=== PATIENT | female | born 1940 | race Caucasian/White ===

== ENCOUNTER 2017-03-24 15:52 | Emergency (ER) | payer MEDICARE ==
--- NOTE | 2017-03-24 16:38 | ER Document Report ---
ED Medical Screen (RME) - General Chief Complaint: Psych Problem Stated Complaint: PSYCH EVALUATION Time Seen by Provider: 03/24/17 16:33 Mode of Arrival: Ambulatory Information source: Patient TRAVEL OUTSIDE OF THE [place] IN LAST 30 DAYS: No - HPI Patient complains to provider of: psych evaluation Onset: Other - Pt's son has dropped her off in the ER -- I did not get to speak with him but evidently he wants her evaluated for Alzheimer's dz. Told personal insurance advisor that she waws becoming increasingly forgetful. Pt. denies SI/HI Past Medical History Renal/ Medical History: Denies: Hx Peritoneal Dialysis Physical Exam - Vital signs Vitals: Temp Pulse Resp BP Pulse Ox 98.7 F 71 20 158/87 H 96 03/24/17 15:56 03/24/17 15:56 03/24/17 15:56 03/24/17 15:56 03/24/17 15:56 Course - Vital Signs Vital signs: Temp Pulse Resp BP Pulse Ox 98.7 F 67 20 158/87 H 100 03/24/17 15:59 03/24/17 15:59 03/24/17 15:59 03/24/17 15:59 03/24/17 15:59
[2017-03-24 17:26] LABS: APPEARANCE,URINE SLIGHTLY-CLOUDY; BILIRUBIN,URINE NEGATIVE (NEGATIVE); GLUCOSE, URINE NEGATIVE (NEGATIVE); KETONES,URINE NEGATIVE (NEGATIVE); LEUKOCYTE ESTERASE,URINE SMALL (NEGATIVE); NITRITE,URINE POSITIVE (NEGATIVE); PROTEIN,URINE NEGATIVE (NEGATIVE); URINE SPECIFIC GRAVITY 1.024; UROBILINOGEN,URINE NEGATIVE mg/dL (<2.0)
--- NOTE | 2017-03-24 17:26 | ER Document Report ---
ED General - General Mode of Arrival: Ambulatory TRAVEL OUTSIDE OF THE [place] IN LAST 30 DAYS: No - HPI Associated symptoms: Other - see above <JANESSA NIETO - Last Filed: 03/24/17 22:42> <SONIA DE ANDA - Last Filed: 03/24/17 22:46> - General Chief Complaint: Psych Problem Stated Complaint: PSYCH EVALUATION Time Seen by Provider: 03/24/17 16:33 Notes: Patient is a 76 year old female who presents to the ED after being dropped off my her son and daughter in law with the help of JONATHAN. Patients son let a list of reasons why he would like his mother evaluated for psychiatric problems. Son is not present in the ED. He states the patient has been asking for family members who are , forgetting where the restroom is at in the house, locking doors in the home when asked not to, forgetting that son was , being scared to sleep in her bedroom, moving objects around the house without remembering doing so, opening doors with not remembering opening it, thinking she is to her son and thinking her son(who she thinks is ) is having an affair on her with sons . Patient is very confused as to why she is here when asked. She continues to refer to son has her and talks about him having an affair with another women (sons ). She denies any chest pain, SOB, nausea, vomiting, diarrhea, or abdominal pain. (JANESSA NIETO) - Related Data Allergies/Adverse Reactions: ibuprofen Allergy (Verified 03/24/17 17:04) naproxen Allergy (Verified 03/24/17 17:04) Home Medications: Current Home Medications Allopurinol [Zyloprim 100 mg Tablet] 100 mg PO DAILY 03/24/17 [History] Aspirin 81 mg PO DAILY 03/24/17 [History] Atorvastatin Calcium [Lipitor 80 mg Tablet] 80 mg PO DAILY 03/24/17 [History] Duloxetine HCl [Cymbalta] 60 mg PO DAILY 03/24/17 [History] Levothyroxine Sodium [Synthroid 0.112 mg Tablet] 0.137 mg PO DAILY 03/24/17 [ History] Lorazepam 1 mg PO BID 03/24/17 [History] Losartan Potassium 25 mg PO DAILY 03/24/17 [History] Zolpidem Tartrate 10 mg PO DAILY 03/24/17 [History] Past Medical History - General Information source: Patient - Social History Smoking Status: Former Smoker Chew tobacco use (# tins/day): No Frequency of alcohol use: None Patient has suicidal ideation: No Patient has homicidal ideation: No - Past Medical History Cardiac Medical History: Reports: Hx Hypercholesterolemia Renal/ Medical History: Denies: Hx Peritoneal Dialysis Psychiatric Medical History: Reports: Hx Depression <EMILIAJANESSA - Last Filed: 03/24/17 22:42> - Social History Family History: Other - alzheimers <SONIA DE ANDA - Last Filed: 03/24/17 22:46> Review of Systems - Review of Systems Constitutional: No symptoms reported EENT: No symptoms reported Cardiovascular: See HPI. denies: Chest pain Respiratory: See HPI. denies: Short of breath Gastrointestinal: No symptoms reported. denies: Abdominal pain, Diarrhea, Nausea, Vomiting Genitourinary: No symptoms reported Female Genitourinary: No symptoms reported Musculoskeletal: No symptoms reported Skin: No symptoms reported Hematologic/Lymphatic: No symptoms reported Neurological/Psychological: See HPI, Confusion <EMILIAJANESSA - Last Filed: 03/24/17 22:42> Physical Exam <EMILIAJANESSA - Last Filed: 03/24/17 22:42> <SONIA DE ANDA - Last Filed: 03/24/17 22:46> - Vital signs Vitals: Temp Pulse Resp BP Pulse Ox 98.7 F 71 20 158/87 H 96 03/24/17 15:56 03/24/17 15:56 03/24/17 15:56 03/24/17 15:56 03/24/17 15:56 - Notes Notes: GENERAL: Alert, interacts well. No acute distress. HEAD: Normocephalic, atraumatic. EYES: Pupils equal, round, and reactive to light. Extraocular movements intact. ENT: Oral mucosa moist, tongue midline. NECK: Full range of motion. Supple. Trachea midline. LUNGS: Clear to auscultation bilaterally, no wheezes, rales, or rhonchi. No respiratory distress. HEART: Regular rate and rhythm. No murmurs, gallops, or rubs. ABDOMEN: Soft, non-tender. Non-distended. Bowel sounds present in all 4 quadrants. EXTREMITIES: Moves all 4 extremities spontaneously. No edema, radial and dorsalis pedis pulses 2/4 bilaterally. No cyanosis. NEUROLOGICAL: Alert. Oriented to person, knows she is in the hospital in [place] but cannot name which hospital or what town she is in. Disoriented to time. Confused about the situation. Patient thinks son is her and sons is her husbands mistress. Normal speech. Biceps and patellar DTRs 2+ bilaterally. PSYCH: Pleasant. Confused. SKIN: Warm, dry, normal turgor. No rashes or lesions noted. (JANESSA NIETO) Course - Laboratory Result Diagrams: 03/24/17 18:30 03/24/17 18:30 <JANESSA NIETO - Last Filed: 03/24/17 22:42> - Laboratory Result Diagrams: 03/24/17 18:30 03/24/17 18:30 <SONIA DE ANDA - Last Filed: 03/24/17 22:46> - Re-evaluation Re-evalutation: 03/24/17 19:42 Contacted patients family over the phone. They are going to come picker tender helper the patient. (JANESSA NIETO) 03/24/17 20:05 CBC unremarkable, CMP shows slight hyper hypokalemia with potassium 3.5, repleted here, otherwise unremarkable, urinalysis is positive for nitrites and small leukocyte esterase, sent for culture, urine drug screen and alcohol negative. Called and discussed with son and [id number] that the patient does not appear to have any acute psychiatric issues at this time she appears to have undiagnosed dementia. She also has a urinary tract infection which could be worsening some of her symptoms at this time. Family is rather overwhelmed by the diagnosis of dementia, repeatedly asks if I am certain that she does not have any new mental health issues that would have appeared in the past year. We did discuss that schizophrenia and other such diagnoses do not think we have here at 72 years old. They are aware that the patient does have a history of anxiety and depression and is currently receiving appropriate medications to treat this and that these are frequent comorbidities with dementia. I do not feel the patient needs IVC criteria, she is not an immediate danger to herself or other people. Patient will be discharged to home with Keflex for her UTI. Family will come and get her. Information has been given to Devin Butler Hal and for helping the family navigate the process of getting her into an outpatient memory care facility. Patient does not meet admission criteria. ( SONIA DE ANDA) - Vital Signs Vital signs: Temp Pulse Resp BP Pulse Ox 98.0 F 66 20 167/54 H 95 03/24/17 21:25 03/24/17 21:25 03/24/17 21:25 03/24/17 21:25 03/24/17 21:25 - Laboratory Laboratory results interpreted by me: 03/24/17 03/24/17 03/24/17 16:40 18:30 18:30 RDW 14.5 H Potassium 3.5 L Est GFR (Non-Af Amer) 58 L Urine Nitrite POSITIVE H Ur Leukocyte Esterase SMALL H Discharge <JANESSA NIETO - Last Filed: 03/24/17 22:42> <SONIA DE ANDA - Last Filed: 03/24/17 22:46> - Discharge Clinical Impression: Dementia Qualifiers: Dementia type: unspecified type Dementia behavioral disturbance: without behavioral disturbance Qualified Code(s): F03.90 - Unspecified dementia without behavioral disturbance Urinary tract infection Qualifiers: Urinary tract infection type: acute cystitis Hematuria presence: without hematuria Qualified Code(s): N30.00 - Acute cystitis without hematuria Hypertension Qualifiers: Hypertension type: essential hypertension Qualified Code(s): I10 - Essential ( primary) hypertension Condition: Good Disposition: HOME, SELF-CARE Additional Instructions: Dementia The exam shows a decrease in mental ability called dementia. Signs of dementia include a gradual loss of memory and a decreased ability to reason and solve problems. Personality changes, hostility, lack of self-care, and loss of bladder or bowel control are later signs of dementia. In these later stages, patients may become confused, lost, fearful, or agitated, even in familiar places. Alzheimer's disease is the most common type of dementia. It has no known cause or specific treatment. Other causes include alcohol and drug abuse, medication effects (especially tranquilizers and sleeping pills), strokes, head injuries, and brain tumors. Sometimes severe depression in an elderly person is mistaken for dementia, and this can be treated if recognized. A complete medical evaluation and ongoing care with a doctor is important. Most people with dementia need help or supervision with daily living. Some may be able to live independently with occasional help; others require foster care or even chcf placement. Alcohol, sedatives, and antihistamines may make the symptoms worse and should be avoided. Alzheimer's disease support groups are available in some communities and can be very valuable to the entire family. Prescription medication can ease the symptoms of Alzheimer's disease in some patients. Please arrange for medical follow-up. Return here if there is a sudden change in mental function, inability to move an arm or leg, inability to speak, fever, or any other significant change. Urinary Tract Infection Your evaluation indicates that you have a urinary tract infection. This is due to germs growing in the bladder. This is a common problem. This infection usually responds quickly to antibiotics. Your antibiotic should be taken exactly as prescribed. Drink plenty of fluids -- three to four quarts a day. Occasionally, a bladder anesthetic will be prescribed to help stop the feeling of urgency until the antibiotic has a chance to clear the infection. This may cause your urine to be dark orange. Certain urine infections require a culture. If the doctor obtained a culture, the results will be back in two days. You should call to see if a change in treatment is needed. A repeat urinalysis after you finish treatment is often recommended. The physician will let you know if further testing is required. Call the doctor if you develop fever, chills, flank pain, inability to urinate, or blood in the urine. If given your information to Devin Butler, she is a nurse who works with discharge planning and social work in in the emergency department. She will give you a call to try and help you navigate the process of getting her mother into a memory care facility. Please also consider following up with a neurologist such as Dr. Mcconnell and establishing with her primary care physician. I have given you the name of Dr. Aldo Byrne the primary care physician manager clinical applications as well as Dr. Felipe and Dr. Dyson both of whom are very good geriatric outpatient physicians. Prescriptions: Cephalexin Monohydrate [Keflex 500 mg Capsule] 500 mg PO QID #20 capsule Referrals: DENISSE MCCONNELL MD [ACTIVE STAFF] - Follow up as needed ALDO BYRNE MD [COMMUNITY BASED STAFF] - Follow up as needed CODI DYSON MD [ACTIVE STAFF] - Follow up as needed ROSALEE FELIPE MD [ACTIVE STAFF] - Follow up as needed Scribe Attestation: 03/24/17 22:46 I personally performed the services described in the documentation, reviewed and edited the documentation which was dictated to the scribe in my presence, and it accurately records my words and actions. (SONIA DE ANDA) Scribe Documentation - Scribe Written by [place]:: harry De Santiago, 03/24/2017, 0527 acting as scribe for :: John <JANESSA NIETO - Last Filed: 03/24/17 22:42>
[2017-03-24 17:51] LABS: URINE BARBITURATES SCREEN NEGATIVE; URINE METHADONE SCREEN NEGATIVE; URINE OPIATES LOW NEGATIVE; URINE PHENCYCLIDINE SCREEN NEGATIVE
[2017-03-24 18:43] LABS: ABSOLUTE BASOPHILS # (AUTO) 0.1 10^3/uL (0.0-0.2); ABSOLUTE EOSINOPHILS # (AUTO) 0.1 10^3/uL (0.0-0.6); ABSOLUTE LYMPHOCYTES (AUTO) 1.7 10^3/uL (0.5-4.7); ABSOLUTE MONOCYTES (AUTO) 0.6 10^3/uL (0.1-1.4); ABSOLUTE NEUT (AUTO) 5.9 10^3/uL (1.7-8.2); BASOPHILS % (AUTO) 1.1 % (0-2); EOSINOPHILS % (AUTO) 0.6 % (0-6); LYMPHOCYTES % (AUTO) 20.7 % (13-45); MEAN CORPUSCULAR HEMOGLOBIN 29.7 pg (27.0-33.4); MEAN CORPUSCULAR HGB CONC 33.3 g/dL (32.0-36.0); MEAN CORPUSCULAR VOLUME 89 fl (80-97); MONOCYTES % (AUTO) 7.1 % (3-13); RED BLOOD COUNT 4.71 10^6/uL (3.72-5.28); RED CELL DISTRIBUTION WIDTH 14.5 % (11.5-14.0); SEGMENTED NEUTROPHILS % (AUTO) 70.5 % (42-78); WHITE BLOOD COUNT 8.4 10^3/uL (4.0-10.5)
[2017-03-24 18:59] LABS: ALANINE AMINOTRANSFERASE 25 U/L (9-52); ALBUMIN 3.9 g/dL (3.5-5.0); ALCOHOL < 10 mg/dL (NONE DETECTED); ALKALINE PHOSPHATASE 80 U/L (38-126); ANION GAP 8 (5-19); ASPARTATE AMINO TRANSFERASE 24 U/L (14-36); BILIRUBIN,DIRECT 0.4 mg/dL (0.0-0.4); BILIRUBIN,TOTAL 0.9 mg/dL (0.2-1.3); BLOOD UREA NITROGEN 17 mg/dL (7-20); CALCIUM 9.5 mg/dL (8.4-10.2); CARBON DIOXIDE 28 mmol/L (22-30); CHLORIDE 103 mmol/L (98-107); CREATININE RESULT 0.94 mg/dL (0.52-1.25); GLUCOSE 91 mg/dL (75-110); POTASSIUM 3.5 mmol/L (3.6-5.0); SODIUM 138.5 mmol/L (137-145); TOTAL PROTEIN 6.8 g/dL (6.3-8.2)
[2017-03-24] MEDS ORDERED: CEPHALEXIN 500 MG CAPSULE PO ONE (19:34)
[2017-03-24 21:54] VITALS: BP 167/54
== END 2017-03-24 21:40 | disposition home or self-care (01) ==
LOC: ER 15:52
DX: F03.90 Unspecified dementia, unspecified severity, without behavioral disturbance, psychotic disturbance, mood disturbance, and anxiety (principal); N30.00 Acute cystitis without hematuria; I10 Essential (primary) hypertension; E87.6 Hypokalemia; F41.9 Anxiety disorder, unspecified; F32.9 Major depressive disorder, single episode, unspecified; Z79.899 Other long term (current) drug therapy; Z87.891 Personal history of nicotine dependence; Z88.8 Allergy status to other drugs, medicaments and biological substances; Z88.6 Allergy status to analgesic agent
CPT/HCPCS: 99284; 36415; 87086; 80307 ×2; 84443; 85025; 87088; 80053; 81001; 87186; A9270